=== PATIENT | male | born 2000 | race Caucasian/White ===

== ENCOUNTER 2018-04-30 03:14 | Emergency (ER) | payer OTHER ==
[2018-04-30] MEDS: LIDOCAINE/MYLANTA 40 ML BTL PO (05:01)
== END 2018-04-30 05:45 | disposition home or self-care (01) ==
LOC: E/R 03:14
DX: K59.00 Constipation, unspecified (principal); I10 Essential (primary) hypertension; J45.909 Unspecified asthma, uncomplicated; F17.210 Nicotine dependence, cigarettes, uncomplicated
CPT/HCPCS: 99283; Z7502

== ENCOUNTER 2018-08-10 17:37 | Emergency (ER) | payer OTHER ==
[2018-08-10] MEDS: ACETAMINOPHEN 325 MG TAB PO (18:25)
[2018-08-10] MEDS: ONDANSETRON (ODT) 4 MG TAB ODT (18:25)
== END 2018-08-10 20:42 | disposition home or self-care (01) ==
LOC: FTE 17:37
DX: S09.90XA Unspecified injury of head, initial encounter (principal); J45.909 Unspecified asthma, uncomplicated; R51 Headache; V28.2XXA Unspecified motorcycle rider injured in noncollision transport accident in nontraffic accident, initial encounter; Y92.9 Unspecified place or not applicable
CPT/HCPCS: 70450; 99284-25

== ENCOUNTER 2018-11-27 16:23 | Emergency (ER) | payer OTHER ==
[2018-11-27] MEDS: LIDOCAINE/MYLANTA 40 ML BTL PO (17:03)
== END 2018-11-27 17:26 | disposition home or self-care (01) ==
LOC: FTE 16:23
DX: R10.13 Epigastric pain (principal); J45.909 Unspecified asthma, uncomplicated
CPT/HCPCS: 99283; Z7502

== ENCOUNTER 2018-12-10 00:17 | Emergency (ER) | payer OTHER | END 2018-12-10 05:48 | disposition home or self-care (01) | LOC: FTE 05:48 | DX: S60.222A Contusion of left hand, initial encounter (principal); J45.909 Unspecified asthma, uncomplicated; W25.XXXA Contact with sharp glass, initial encounter; Y92.9 Unspecified place or not applicable | CPT/HCPCS: 73130; 73130-LT; 99283-25 ==